=== PATIENT | male | born 1950 | race Caucasian/White ===

== ENCOUNTER 2018-04-22 16:29 | Outpatient (REF) | payer MEDICARE, OTHER, SELFPAY ==
[2018-04-22 22:14] LABS: Abs Immature Grans 0.02 k/cumm (0.0-0.09); Absolute Basophil Count 0.02 k/cumm (0.0-0.2); Absolute Lymphocyte Count 1.41 k/cumm (1.2-3.4); Absolute Monocyte Count 0.66 k/cumm (0.11-0.7); Absolute Neutrophil Count 5.07 k/cumm (1.2-6.7); Basophils % 0.3; Eosinophils % 2.7; HCT 38.8 % (40.0-50.0); HGB 12.8 g/dL (13.5-17.5); Immature Grans % 0.3; Lymphocytes % 19.1; Mean Corpuscular Hemoglobin 31.5 pg (27.0-33.0); Mean Corpuscular Volume 95.6 fL (80-95); Mean Platelet Volume 10.8 fL (8.0-11.0); Monocytes % 8.9; Neutrophils % 68.7; Platelet Count 321 x1000/uL (130-400); RBC 4.06 m/cumm (4.50-6.00); RBC Distribution Width 13.3 % (11.8-14.1); White Blood Cell Count 7.38 k/cumm (4.4-10.8)
[2018-04-22 22:29] LABS: ALT 23 U/L (12-78); AST 21 U/L (15-37); Albumin 3.5 g/dL (3.4-5.0); Alkaline Phosphatase 91 U/L (46-116); Anion Gap 7.7 mmol/L (3-11); BUN 10 mg/dL (7-18); Bilirubin, Total 0.3 mg/dL (0.2-1.0); CO2 31.3 mmol/L (21.0-32.0); CREATININE 0.64 mg/dL (0.70-1.30); Calcium 8.5 mg/dL (8.5-10.1); Chloride 99 mmol/L (98-107); Glucose 89 mg/dL (70-100); Potassium 3.9 mmol/L (3.5-5.1); Sodium 138 mmol/L (136-145); TSH (W/Ref FT4) 7.03 uIU/mL (0.358-3.74); Total Protein 6.8 g/dL (6.4-8.2)
[2018-04-22 23:07] LABS: FREE T4 0.88 ng/dL (0.76-1.46)
== END 2018-04-22 16:49 ==
LOC: NCHCN 16:29
PROVIDERS: PCP Nurse Practitioner Family; Visit Provider Nurse Practitioner Family
DX: R61 Generalized hyperhidrosis (principal); R53.83 Other fatigue
CPT/HCPCS: 80053; 84439; 84443; 85025

== ENCOUNTER 2018-08-15 15:46 | Outpatient (REF) | payer MEDICARE, OTHER, SELFPAY ==
[2018-08-15 21:48] LABS: Vitamin B12 > 2000 pg/mL (193-986)
== END 2018-08-15 16:06 ==
LOC: NCHCN 15:46
PROVIDERS: PCP Nurse Practitioner Family; Visit Provider Family Medicine
DX: G47.00 Insomnia, unspecified (principal); E53.8 Deficiency of other specified B group vitamins
CPT/HCPCS: 82607

== ENCOUNTER 2020-06-18 18:29 | Outpatient (REF) | payer MEDICARE, OTHER, SELFPAY ==
[2020-06-23 01:02] LABS: Patient Race White; SARS-CoV-2 RNA Undetected (Undetected); SARS-CoV-2 Specimen Source Nasal
== END 2020-06-18 18:49 ==
LOC: NCHCN 18:29
PROVIDERS: PCP Nurse Practitioner Family; Visit Provider Nurse Practitioner Family
DX: Z20.828 Contact with and (suspected) exposure to other viral communicable diseases (principal)
CPT/HCPCS: U0003

== ENCOUNTER → 2024-05-15 13:56 | Outpatient (BNVA) | payer MEDICARE, OTHER, SELFPAY | PROVIDERS: PCP Physician Assistant Medical; Referring Provider Physician Assistant Medical; Visit Provider Psychiatry & Neurology Neurology | DX: G43.009 Migraine without aura, not intractable, without status migrainosus (principal); D18.1 Lymphangioma, any site; I49.9 Cardiac arrhythmia, unspecified | CPT/HCPCS: 99205 ==

== ENCOUNTER → 2024-08-04 12:20 | Outpatient (BNVA) | payer MEDICARE, OTHER, SELFPAY | PROVIDERS: PCP Physician Assistant Medical; Referring Provider Physician Assistant Medical; Visit Provider Psychiatry & Neurology Neurology | DX: G43.009 Migraine without aura, not intractable, without status migrainosus (principal); D18.1 Lymphangioma, any site; I49.9 Cardiac arrhythmia, unspecified | CPT/HCPCS: 99214 ==

== ENCOUNTER → 2024-09-15 14:32 | Outpatient (BNVA) | payer MEDICARE, OTHER, SELFPAY | PROVIDERS: PCP Physician Assistant Medical; Referring Provider Physician Assistant Medical; Visit Provider Psychiatry & Neurology Neurology | DX: D18.1 Lymphangioma, any site (principal); I49.9 Cardiac arrhythmia, unspecified; G43.009 Migraine without aura, not intractable, without status migrainosus | CPT/HCPCS: 99214 ==

== ENCOUNTER → 2024-11-10 12:59 | Outpatient (BNVA) | payer MEDICARE, OTHER, SELFPAY | PROVIDERS: PCP Physician Assistant Medical; Referring Provider Physician Assistant Medical; Visit Provider Psychiatry & Neurology Neurology | DX: D18.1 Lymphangioma, any site (principal); I49.9 Cardiac arrhythmia, unspecified; G43.009 Migraine without aura, not intractable, without status migrainosus | CPT/HCPCS: 99215 ==

== ENCOUNTER → 2025-01-13 11:55 | Outpatient (BNVA) | payer MEDICARE, SELFPAY | PROVIDERS: PCP Physician Assistant Medical; Referring Provider Physician Assistant Medical; Visit Provider Psychiatry & Neurology Neurology | DX: D18.1 Lymphangioma, any site (principal); I49.9 Cardiac arrhythmia, unspecified; G43.009 Migraine without aura, not intractable, without status migrainosus; R20.2 Paresthesia of skin; I10 Essential (primary) hypertension | CPT/HCPCS: 99215 ==